=== PATIENT | female | born 1955 ===

== ENCOUNTER 2020-08-11 12:17 | Outpatient (REF) | payer MEDICARE, SELFPAY | END 2020-08-11 12:18 | disposition home or self-care (01) | LOC: HO.LAB 12:17 | PROVIDERS: Visit Provider Internal Medicine | DX: Z20.828 Contact with and (suspected) exposure to other viral communicable diseases (principal) | CPT/HCPCS: C9803; U0003 ==

== ENCOUNTER 2020-09-11 08:43 | Outpatient (REF) | payer MEDICARE, SELFPAY ==
--- NOTE | 2020-09-11 | PFT_ITS ---
FLOWS: FEV1 of 103% of predicted at 2.66 L. FVC 103% of predicted at 3.48 L. FEV1 to FVC ratio of 0.76. No bronchodilator response. LUNG VOLUMES: Total lung capacity 107% of predicted at 5.76 L. Residual volume 102% of predicted at 2.9 L. Slow vital capacity 111% of predicted at 3.48 L. Expiratory reserve volume 39% of predicted at 0.33 L. Diffusion capacity is moderately decreased. IMPRESSION: No obstructive or restrictive ventilatory defect. No bronchodilator response. Decreased expiratory reserve volume suggests extrathoracic restriction likely secondary to abdominal obesity. Isolated decrease in diffusion capacity suggests underlying pulmonary vascular or parenchymal disease. Clinical correlation is suggested. MD THA Hardy/MODL / [id number]
== END 2020-09-11 08:44 | disposition home or self-care (01) ==
LOC: HO.RESP 08:43
PROVIDERS: PCP Internal Medicine; Visit Provider Hospitalist
DX: J41.0 Simple chronic bronchitis (principal); Z23 Encounter for immunization
CPT/HCPCS: 90471; 90732; 94060; 94727; 94729; 99212

== ENCOUNTER 2020-10-30 08:58 | Outpatient (REF) | payer MEDICARE, SELFPAY ==
--- NOTE | ~2020-10-30 | XR_ITS ---
EXAMINATION: XR CERVICAL SPINE CLINICAL INFORMATION: Neck pain. COMPARISON: None TECHNIQUE: 3 views of the cervical spine were obtained. FINDINGS: There is mild anterolisthesis of C4 on C5. No prevertebral soft tissue swelling. Vertebral body heights are maintained. No evidence of acute fracture. Moderate disc degeneration at C5-C6, C6-C7. Multilevel facet degeneration. No suspicious findings in the lung apices. XR/XR cervical spine 3V IMPRESSION: No evidence of acute fracture. Cervical spondylosis. This includes moderate C5-C6, C6-C7 disc degeneration.
[2020-10-30 11:26] LABS: Hematocrit 38.6 % (37-47); Hemoglobin 12.7 g/dl (12.0-16.0); Mean Corpuscular HGB Conc 32.9 g/dl (31.0-35.0); Mean Corpuscular Hemoglobin 31.4 pg (27.0-33.0); Mean Corpuscular Volume 95.5 fL (80-98); Mean Platelet Volume 9.6 fL (9.4-12.3); Platelet Count 300 X10*3/uL (160-400); Red Blood Count 4.04 X10*6/uL (4.20-5.50); Red Cell Distribution Width 12.9 % (11.0-16.0); White Blood Count 6.9 X10*3/uL (4.8-10.8)
[2020-10-30 11:40] LABS: Glucose Urine UA NEG (NEG); Leukocyte Esterase Urine NEG (NEG); Nitrite Urine NEG (NEG); PH 5.5 (5.0-8.0); Urine Blood TRACE (NEG); Urine Ketones NEG (NEG); Urine Protein NEG (NEG-TRACE)
[2020-10-30 11:41] LABS: Appearance Urine CLEAR; Color Urine YELLOW
[2020-10-30 11:52] LABS: Alanine Aminotransferase 22 U/L (0-31); Albumin Level 4.6 g/dL (3.5-5.0); Alkaline Phosphatase 77 U/L (39-117); Anion Gap 14 (12-20); Aspartate Amino Transferase 19 U/L (5-31); Bilirubin Total 0.8 mg/dL (0.0-1.0); Blood Urea Nitrogen 15 mg/dL (9-16); Calcium 9.5 mg/dL (8.4-10.2); Carbon Dioxide 26 mmol/L (22-29); Chloride 107 mmol/L (96-108); Cholesterol 184 mg/dL; Estimated Glomerular Filt Rate > 60; Glucose Fasting 90 mg/dL (60-99); HDL Cholesterol 63 mg/dL; LDL Cholesterol Calculated 97 mg/dl; Potassium 4.5 mmol/L (3.3-5.1); Sodium 142 mmol/L (135-145); Triglycerides 124 mg/dL
[2020-10-30 12:16] LABS: Squamous Epithelial Cell Urine TRACE /LPF; WBC Urine 0 /HPF (0-4)
[2020-10-30 12:18] LABS: TSH reflex Free T4 1.73 uIU/mL (0.32-4.0); Vitamin D 25-OH Total 30.2 ng/mL (>30)
== END 2020-10-30 08:59 | disposition home or self-care (01) ==
LOC: HO.HMGCX 08:58
PROVIDERS: PCP Internal Medicine; Visit Provider Internal Medicine
DX: Z00.00 Encounter for general adult medical examination without abnormal findings (principal); R91.8 Other nonspecific abnormal finding of lung field; J43.2 Centrilobular emphysema
CPT/HCPCS: 36415; 72040; 80053; 80061; 81001; 82306; 84443; 85027

== ENCOUNTER 2021-03-29 08:20 | Outpatient (REF) | payer MEDICARE, SELFPAY ==
--- NOTE | ~2021-03-29 | MM_ITS ---
EXAMINATION: MM SCREENING DIGITAL BREAST TOMOSYNTHESIS, BILATERAL CLINICAL INFORMATION: Screening. Asymptomatic. The lifetime risk of breast cancer based on the Tyrer-Cuzick Model is 6%. COMPARISON: Mammography: 03/27/2020, 12/01/2018, 08/22/2017 TECHNIQUE: Digital breast tomosynthesis is performed in both the craniocaudal and mediolateral oblique views along with computer-aided detection (CAD). Synthesized 2D images are generated from the tomosynthesis. FINDINGS: There are scattered areas of fibroglandular density (ACR BI-RADS breast composition Category b). There are no significant masses, abnormal calcifications, or other abnormalities. There is a dermal lesion again seen overlying the upper outer left breast. The axilla are unremarkable. No significant changes. MM/MM tomosynthesis screening BI IMPRESSION: No mammographic evidence of malignancy. ASSESSMENT: BI-RADS 2: Benign RECOMMENDATION: Routine annual mammography screening. This patient's information was entered into a reminder system with a target due date for their next mammogram.
== END 2021-03-29 08:21 | disposition home or self-care (01) ==
LOC: HO.MAMMO 08:20
PROVIDERS: PCP Internal Medicine; Visit Provider Internal Medicine
DX: Z12.31 Encounter for screening mammogram for malignant neoplasm of breast (principal)
CPT/HCPCS: 77063; 77067

== ENCOUNTER → 2021-09-10 08:59 | Outpatient (BNVA) | payer MEDICARE, SELFPAY | PROVIDERS: PCP Internal Medicine; Visit Provider Hospitalist | DX: R91.8 Other nonspecific abnormal finding of lung field (principal); J43.2 Centrilobular emphysema; J40 Bronchitis, not specified as acute or chronic | CPT/HCPCS: Q3014 ==

== ENCOUNTER 2021-11-19 09:05 | Day surgery (SDC) | payer MEDICARE, SELFPAY ==
--- NOTE | 2021-11-17 14:17 | P.CONAN_ITS ---
Documented by User: Katherine Hawkins NP 11/17/21 14:19 HPI - Anesthesia Eval Consult details Narrative: 66yo F for Upper Endoscopy and Colonoscopy PMFSH Active Problems Active Problems: All Active Problems (Updated 09/12/21 @ 21:11 by Nilo Palacio MD) Bronchitis (Acute) Neck pain (Acute) Annual physical exam (Acute) Pulmonary nodules (Acute) COPD (chronic obstructive pulmonary disease) (Acute) Past Medical History Medical History Annual physical exam Arthritis COPD (chronic obstructive pulmonary disease) Elevated cholesterol History of palpitations Hx of irritable bowel syndrome Neck pain Pulmonary nodules Family History Family History Father No problems noted. Mother No problems noted. Maternal Aunt Colon cancer Maternal Uncle Colon cancer Sister No problems noted. Son No problems noted. Surgical History Surgical History H/O colonoscopy History of carpal tunnel release of both wrists Hx of esophagogastroduodenoscopy Hx of oophorectomy Hx of tonsillectomy Social History Social History Housing: House Patient Tobacco Use Status: Former Tobacco user Quit Date: 2010 Tobacco use type: Cigarette Years Smoked: 10 years e-Cigarette/Vaping Use: Never Used Use of substances other than those prescribed or required for medical reasons: No Are you DNR?: No Advance Directives: No Advance Directives Information Provided: Yes Recently lost weight without trying: No Meds Allergies Allergy/AdvReac Type Severity Reaction Status Date / Time No Known Allergies Allergy Mild N/A Verified 11/19/21 10:04 Home Medications Medication Instructions Recorded Confirmed Last Taken Type cholecalciferol (vitamin D3) 25 25 mcg PO DAILY 06/29/20 10/22/20 Unknown History mcg (1,000 unit) tablet (Vitamin D3) coenzyme Q10 100 mg capsule (Co 100 mg PO DAILY 06/29/20 10/22/20 Unknown History Q-10) multivitamin 1 tab PO DAILY 06/29/20 10/22/20 Unknown History tiotropium 2.5 mcg-olodaterol 2.5 2 puff INHALATION DAILY 06/29/20 10/22/20 Unknown History mcg/actuation mist for inhalation (Stiolto Respimat) flu vacc [id number](65yr up)-PF 240 ml IM 09/11/20 10/22/20 Unknown History mcg/0.7 mL intramuscular syringe fluticasone propionate 50 2 spray INTRANASAL DAILY 09/11/20 10/22/20 Unknown H istory mcg/actuation nasal spray,suspension omeprazole 20 mg capsule,delayed 20 mg PO DAILY 10/25/21 Unknown History release Exam Exam Date and Time: November 17, 2021 1417 Narrative Narrative: PFT 03/2021 IMPRESSION:? No obstructive or restrictive ventilatory defect.? No bronchodilator response. Decreased expiratory reserve volume suggests extrathoracic restriction likely secondary to abdominal obesity.? Isolated decrease in diffusion capacity suggests underlying pulmonary vascular or parenchymal disease.? Clinical correlation is suggested. Assessment and Plan Assessment Anesthesia Assessment: Chart Reviewed Documented by User: Rajni Rodriguez MD 11/19/21 10:23 [facility] Past Medical History Medical History Annual physical exam Arthritis COPD (chronic obstructive pulmonary disease) Elevated cholesterol History of palpitations Hx of irritable bowel syndrome Neck pain Pulmonary nodules Family History Family History Father No problems noted. Mother No problems noted. Maternal Aunt Colon cancer Maternal Uncle Colon cancer Sister No problems noted. Son No problems noted. Surgical History Surgical History H/O colonoscopy History of carpal tunnel release of both wrists Hx of esophagogastroduodenoscopy Hx of oophorectomy Hx of tonsillectomy History of Problems with Anesthesia: No Social History Social History Housing: House Patient Tobacco Use Status: Former Tobacco user Quit Date: 2010 Tobacco use type: Cigarette Years Smoked: 10 years e-Cigarette/Vaping Use: Never Used Use of substances other than those prescribed or required for medical reasons: No Are you DNR?: No Advance Directives: No Advance Directives Information Provided: Yes Recently lost weight without trying: No Meds Allergies Allergy/AdvReac Type Severity Reaction Status Date / Time No Known Allergies Allergy Mild N/A Verified 11/19/21 10:04 Home Medications Medication Instructions Recorded Confirmed Last Taken Type cholecalciferol (vitamin D3) 25 25 mcg PO DAILY 06/29/20 10/22/20 Unknown History mcg (1,000 unit) tablet (Vitamin D3) coenzyme Q10 100 mg capsule (Co 100 mg PO DAILY 06/29/20 10/22/20 Unknown History Q-10) multivitamin 1 tab PO DAILY 06/29/20 10/22/20 Unknown History tiotropium 2.5 mcg-olodaterol 2.5 2 puff INHALATION DAILY 06/29/20 10/22/20 Un known History mcg/actuation mist for inhalation (Stiolto Respimat) flu vacc [id number](65yr up)-PF 240 ml IM 09/11/20 10/22/20 Unknown History mcg/0.7 mL intramuscular syringe fluticasone propionate 50 2 spray INTRANASAL DAILY 09/11/20 10/22/20 Unknown History mcg/actuation nasal spray,suspension omeprazole 20 mg capsule,delayed 20 mg PO DAILY 10/25/21 Unknown History release Exam Airway Mallampati Class: II TM Dist: >3cm Neck ROM: Full Loose/Missing/Broken Teeth: No Heart: RRR Lungs: CTA Assessment and Plan Final Anesthetic Review History of Problems with Anesthesia: No NPO: Yes Final Preanesthetic Review: Meds/Allgs Chart Reviewed, Consent Obtained/Reviewed and Anes Risks/Benef Reviewed Patient Risk: Intermediate Procedure Risk: Intermediate Anesthetic Plan Anesthetic Plan: MAC: Disposition: Standard PACU
[2021-11-19 09:18] VITALS: BMI 30.7
[2021-11-19 10:02] VITALS: BP 135/62; PULSE 72; RESP 18; TEMP 36.2; O2SAT 99
[2021-11-19] MEDS: Lactated Ringers 1,000 ML 100 ML IVCONT (10:05)
--- NOTE | 2021-11-19 10:19 | MHC.SHP ---
Pre-Procedural Eval Section A Date of Service: 11/19/21 The patient is an INPATIENT: No Changes since office visit: No Cold of Flu in the past 2 weeks, No New Medical Problems, No Changes in Medication and No Patient answered all questions The History & Physical has been completed within 30 days and I have reviewed it.: Yes Section B Chief Complaint: reflux disease,screening Allergies: Allergies Allergy/AdvReac Type Severity Reaction Status Date / Time No Known Allergies Allergy Mild N/A Verified 11/19/21 10:04 Plan I have reviewed the history and physical and performed a pertinent physical examination on my patient. No changes have occurred unless specified.
[2021-11-19 11:15] VITALS: BP 107/43; PULSE 62; RESP 18; TEMP 37.2; O2SAT 99
--- NOTE | 2021-11-19 11:22 | P.BOP_ITS ---
Brief Operative Note Date of Service: 11/19/21 Pre-op diagnosis: gerd,screening Post-op diagnosis: same Procedure: egd,colon Surgeon: Parminder Fitch Anesthesia: MAC Was an Social Director used for this Procedure?: No Estimated blood loss (mL): 2 Pathology: other (see req) Condition: stable Disposition: PACU
[2021-11-19 11:29] VITALS: BP 117/53; PULSE 79; RESP 16; TEMP 36.5; O2SAT 97
--- NOTE | 2021-11-19 11:53 | OP_ITS ---
SURGEON: Parminder Fitch MD INDICATIONS: 1. Gastroesophageal reflux disease. 2. Colon cancer screening. PREOPERATIVE DIAGNOSIS: POSTOPERATIVE DIAGNOSIS: PROCEDURE PERFORMED: 1. Upper endoscopy with biopsy. 2. Colonoscopy to the terminal ileum. ESTIMATED BLOOD LOSS: COMPLICATIONS: ANESTHESIA: ASSISTANTS: SPECIMENS: MEDICATIONS: Monitored anesthesia care. PROCEDURE DESCRIPTION: The history and physical were performed. The risks and benefits of the procedure were explained to the patient. Informed consent was obtained. The patient was placed in the left lateral decubitus position. The Olympus video gastroscope was introduced into the esophagus, stomach, and duodenum. Examination was performed. The scope was removed and she was repositioned for colonoscopy. A digital rectal exam was performed and was found to be normal. The Olympus pediatric video colonoscope was introduced into the rectum and advanced to the cecum without difficulty. The cecum was identified by transillumination, palpation, and identification of the ileocecal valve. Examination was performed and the scope was removed. She tolerated both procedures well and was sent to recovery area in stable condition. FINDINGS: UPPER ENDOSCOPY: Esophagus: The esophagus showed esophagitis in the distal 2 cm with a single erosion measuring approximately 5 mm. Biopsies were obtained from the EG junction. There was no stricture. Stomach: The stomach showed no evidence of masses, ulcers, or polyps. Antral biopsies were obtained. Duodenum: Bulb and second portion were normal. Biopsies were obtained from the second portion. COLONOSCOPY: The terminal ileum was normal. Abdominal wall pressure was used to assist in advancement of the scope. The quality of prep was good. No polyps were identified. Retroflexed examination was normal. Colonic mucosa is normal. IMPRESSION: 1. Gastroesophageal reflux disease with esophagitis. 2. Normal colonoscopy. RECOMMENDATION: 1. Follow up the biopsy results. 2. Begin omeprazole 20 mg daily for 8-12 weeks. 3. Repeat colonoscopy is recommended in 10 years for average risk individuals. MD GIOVANNI Adams/LEATHA / [id number] MTDD
== END 2021-11-19 12:00 | disposition home or self-care (01) ==
PROVIDERS: PCP Internal Medicine; Visit Provider Internal Medicine Gastroenterology
PROC: (CPT 43239; principal; 2021-11-19 10:20)
DX: Z12.11 Encounter for screening for malignant neoplasm of colon (principal); Z86.010 Personal history of colon polyps; K58.2 Mixed irritable bowel syndrome; K21.9 Gastro-esophageal reflux disease without esophagitis; K20.80 Other esophagitis without bleeding; J44.9 Chronic obstructive pulmonary disease, unspecified; E78.00 Pure hypercholesterolemia, unspecified; Z79.51 Long term (current) use of inhaled steroids; Z79.899 Other long term (current) drug therapy; Z87.891 Personal history of nicotine dependence
CPT/HCPCS: 43239; G0105; 88305; 88341; 88342

== ENCOUNTER 2022-03-29 10:12 | Day surgery (SDC) | payer MEDICARE, SELFPAY ==
[2022-02-16 14:56] VITALS: BMI 31.8
[2022-03-29] VITALS (9 sets, daily range): BP systolic 78–135; BP diastolic 29–60; PULSE 23–67; RESP 13–18; TEMP 36.4–36.7; O2SAT 94–100
[2022-03-29] MEDS: Lactated Ringers 1,000 ML 50 ML IVCONT (10:34)
--- NOTE | 2022-03-29 11:04 | P.HPSUR_ITS ---
Pre-Procedural Eval Section A Date of Service: 03/29/22 Section B Chief Complaint: Hong's esophagus with low grade dysplasia Details of Present Illness: see H&P no changes Relevant Family History (Specify if Yes): No Relevant Social History: None Present Medications: see Short Stay Collaborative assessment Medical History: No relevant PMH Allergies: Allergies Allergy/AdvReac Type Severity Reaction Status Date / Time No Known Allergies Allergy Mild N/A Verified 03/29/22 10:48 Review of Systems Sugical H&P ROS: Negative: Constitution, Cardiovascular, Respiratory, Neurological, Psychiatric, Hem-Onc, Allergic/Immunologic, Gastrointestinal, Genitourinary, Musculoskeletal, Integumentary, Endocrine and Eyes/Ears/Nose/Throat Exam Surgical H&P Exam: Normal: HEENT, Normal: Heart, Normal: Lungs, Normal: Ext remities, Normal: Abdomen, Normal: Skin and Normal: Neurological Plan Diagnosis/Plan: Unchanged I have reviewed the history and physical and performed a pertinent physical examination on my patient. No changes have occurred unless specified.
--- NOTE | 2022-03-29 11:35 | P.BOP_ITS ---
Brief Operative Note Date of Service: 03/29/22 Pre-op diagnosis: barretts, LGD Post-op diagnosis: same Procedure: egd Surgeon: Parminder Fitch Anesthesia: MAC Was an Fourchette Sewer used for this Procedure?: No Estimated blood loss (mL): 2 Pathology: other Condition: stable Disposition: PACU
--- NOTE | 2022-03-29 12:46 | HO.ANESPROP2 ---
HPI - Anesthesia Eval Consult details Narrative: 66 F for EGD PMFSH Active Problems Active Problems: All Active Problems (Updated 02/18/22 @ 08:55 by Silvana Boggs RN) Bronchitis (Acute) COPD (chronic obstructive pulmonary disease) (Acute) Pulmonary nodules (Acute) Annual physical exam (Acute) Neck pain (Acute) Past Medical History Medical History Annual physical exam Arthritis COPD (chronic obstructive pulmonary disease) Elevated cholesterol History of fall History of palpitations Hx of irritable bowel syndrome Neck pain Pulmonary nodules Family History Family History Father No problems noted. Mother No problems noted. Maternal Aunt Colon cancer Maternal Uncle Colon cancer Sister No problems noted. Son No problems noted. Family history of problems with anesthesia: No Surgical History Surgical History H/O colonoscopy History of carpal tunnel release of both wrists Hx of esophagogastroduodenoscopy Hx of oophorectomy Hx of tonsillectomy History of Problems with Anesthesia: No Social History Social History Housing: House Patient Tobacco Use Status: Former Tobacco user Quit Date: 2010 Tobacco use type: Cigarette Years Smoked: 10 years e-Cigarette/Vaping Use: Never Used Are you DNR?: No Advance Directives: No Advance Directives Information Provided: Yes Nutrition Risks: No Nutritional Risk Meds Allergies Allergy/AdvReac Type Severity Reaction Status Date / Time No Known Allergies Allergy Mild N/A Verified 03/29/22 10:48 Active Medications: Current Medications Lactated Ringer's (Lr) 1,000 mls @ 50 mls/hr IVCONT .Q20H MATT Last Infusion: 03/29/22 12:30 Dose: Infused Home Medications Medication Instructions Recorded Confirmed Last Taken Type cholecalciferol (vitamin D3) 25 25 mcg PO DAILY 06/29/20 03/23/22 Unknown History mcg (1,000 unit) tablet (Vitamin D3) coenzyme Q10 100 mg capsule (Co 100 mg PO DAILY 06/29/20 03/23/22 Unknown History Q-10) multivitamin 1 tab PO DAILY 06/29/20 03/23/22 Unknown History tiotropium 2.5 mcg-olodaterol 2.5 2 puff inhalation DAILY 06/29/20 03/23/22 Unknown History mcg/actuation mist for inhalation (Stiolto Respimat) fluticasone propionate 50 2 spray intranasal DAILY 09/11/20 10/22/20 Unknown History mcg/actuation nasal spray,suspension omeprazole 20 mg capsule,delayed 20 mg PO DAILY 10/25/21 03/23/22 03/29/22 History release Exam Exam Date and Time: March 29, 2022 1246 Height,Weight and Vital Signs: Height 5 ft 5.5 in Weight 194 lb Last Vital Signs Temp 98.1 F 03/29/22 11:29 Pulse 56 03/29/22 12:18 Resp 15 03/29/22 12:18 BP 127/48 L 03/29/22 12:18 Pulse Ox 98 03/29/22 12:18 O2 Del Method 03/29/22 12:18 Airway Mallampati Class: I TM Dist: >3cm Neck ROM: Full Loose/Missing/Broken Teeth: Yes Assessment and Plan Assessment Anesthesia Assessment: Anesthesia Plan Discussed and Chart Reviewed Final Anesthetic Review Family History of Problems with Anesthesia: No History of Problems with Anesthesia: No NPO: Yes ASA Class: III Final Preanesthetic Review: No Changes in Pt Med Stat, Meds/Allgs Chart Reviewed, Consent Obtained/Reviewed and Anes Risks/Benef Reviewed Patient Risk: Intermediate Procedure Risk: Low Anesthetic Plan Anesthetic Plan: MAC: Disposition: Standard PACU
--- NOTE | 2022-03-29 23:00 | OP_ITS ---
SURGEON: Parminder Fitch MD INDICATIONS: Hong's esophagus with low-grade dysplasia. PREOPERATIVE DIAGNOSIS: POSTOPERATIVE DIAGNOSIS: PROCEDURE PERFORMED: Upper endoscopy with brushing and biopsy. ESTIMATED BLOOD LOSS: COMPLICATIONS: ANESTHESIA: ASSISTANTS: SPECIMENS: MEDICATIONS: Monitored anesthesia care. DESCRIPTION OF PROCEDURE: The history and physical performed. The risks and benefits of the procedure were explained to the patient. Informed consent was obtained. The patient placed in the left lateral decubitus position. The Olympus video gastroscope was introduced into the esophagus, stomach, and duodenum. Examination was performed. The scope was removed. She tolerated the procedure well and was transferred to recovery area in stable condition. FINDINGS: 1. Esophagus: The esophagus showed a 1 cm area consistent with Hong esophagus. The EG junction was at the 40 cm eulogio and there were no raised lesions or ulcerated areas. There was no esophagitis. Brushings were obtained for WATS testing. Biopsies were also obtained for histopathology. 2. Stomach: The stomach was normal. 3. Duodenum: The bulb and second portion were normal. IMPRESSION: Hong's esophagus with low-grade dysplasia. RECOMMENDATIONS: Follow up the biopsy and brushing results. MD GIOVANNI Adams/BLAIREL / [id number]
== END 2022-03-29 13:39 | disposition home or self-care (01) ==
PROVIDERS: PCP Internal Medicine; Visit Provider Internal Medicine Gastroenterology
PROC: 0DJ08ZZ Inspection of Upper Intestinal Tract, Via Natural or Artificial Opening Endoscopic (ICD-10-PCS; CPT 43235; principal; 2022-03-29 11:00)
DX: K22.70 Barrett's esophagus without dysplasia (principal); J44.9 Chronic obstructive pulmonary disease, unspecified; E78.00 Pure hypercholesterolemia, unspecified; Z79.51 Long term (current) use of inhaled steroids; Z91.81 History of falling; Z87.891 Personal history of nicotine dependence
CPT/HCPCS: 43239; 88305

== ENCOUNTER → 2022-06-01 08:56 | Outpatient (BNVA) | payer MEDICARE, SELFPAY | PROVIDERS: PCP Internal Medicine; Visit Provider Hospitalist | DX: R91.8 Other nonspecific abnormal finding of lung field (principal); J43.2 Centrilobular emphysema; J40 Bronchitis, not specified as acute or chronic | CPT/HCPCS: 99212 ==

== ENCOUNTER 2022-11-14 08:46 | Outpatient (REF) | payer MEDICARE, SELFPAY ==
--- NOTE | 2022-11-14 11:04 | PFT_ITS ---
FLOWS: 1. FEV1 97% of predicted at 2.45 L. 2. FVC 98% of predicted at 3.23 L. 3. FEV1 to FVC ratio 0.76. 4. No bronchodilator response except small to medium airways. LUNG VOLUMES: 1. Total lung capacity 103% of predicted at 5.56 L. 2. Residual volume 107% of predicted at 2.42 L. 3. Slow vital capacity 101% of predicted at 3.13 L. 4. Expiratory reserve volume 78% of predicted at 0.64 L. 5. Diffusion capacity is mildly decreased. IMPRESSION: No obstructive or restrictive ventilatory defect. No bronchodilator response except some small to medium airways. Decreased diffusion capacity suggests emphysema. Jese Carrizales MD AP/MODL / [id number]
== END 2022-11-14 08:47 | disposition home or self-care (01) ==
LOC: HO.RESP 08:46
PROVIDERS: PCP Nurse Practitioner Family; Visit Provider Hospitalist
DX: J43.2 Centrilobular emphysema (principal)
CPT/HCPCS: 94060; 94727; 94729

== ENCOUNTER → 2022-12-30 09:09 | Outpatient (BNVA) | payer MEDICARE, SELFPAY | PROVIDERS: PCP Nurse Practitioner Family; Visit Provider Hospitalist | DX: Z23 Encounter for immunization (principal); R91.8 Other nonspecific abnormal finding of lung field; J43.2 Centrilobular emphysema; J40 Bronchitis, not specified as acute or chronic | CPT/HCPCS: 90471; 90677; 99212 ==

== ENCOUNTER 2024-02-19 08:45 | Outpatient (AMB) | payer MEDICARE, SELFPAY ==
[2024-02-19 09:01] VITALS: BP 128/72; PULSE 60; O2SAT 97; BMI 27.0
--- NOTE | 2024-02-19 09:01 | A.OFFVIS_ITS ---
Vital Signs 02/19/24 09:01 Height 5 ft 6.5 in Weight 170 lb BMI 27.0 BP 128/72 Blood Pressure Location Lt brachial Position Sitting Pulse 60 Pulse Source Pulse Oximeter Pulse Oximetry (%) 97 Oxygen Delivery Method Room Air Intake Visit Reasons: Pulmonary Nodules Allergies No Known Allergies Allergy (Mild, Verified 02/19/24 09:04) N/A HPI Comments Details: The patient is a 68-year-old woman known COPD in addition to pulmonary nodules. Overall she is doing very well. She has been complaining of a persistent cough. It is usually productive of white sputum. She denies any significant postnasal drip or reflux. She does not always use her inhalers. She is now part of the lung cancer screening program and had her CT scan of the chest back in January 2018. Her 10 mm nodule appeared to be stable. She is scheduled to have a follow-up CAT scan in January of 2020. In the meantime the patient is without any other complaints. On examination she does have significant postnasal drip. 09/11/2020 the patient is here for pulmonary follow-up visit. Overall the patient has been doing well. She has been exercising more. She has been swimming more. She still has some dyspnea on exertion specially when she does not use her inhaler. We did look at her pulmonary function studies demonstrating no evidence of any obstructive nor restrictive ventilatory defects. She does have a moderate diffusion impairment likely from history of emphysema. She is followed closely by the lung cancer screening program and her last CT scan dem onstrating stable pulmonary nodules. 09/10/2021 The patient has a tele health visit. Back in November 2020 the patient did have COVID. She stayed home although she did get moderately sick. The patient was sick for about 5 weeks. She has not recovered although for the last 3 weeks she has been battling a cold. She has been COVID tested again has been negative. She continues to take hwuu-upy-juemuev medications. Her inhalers have been partially helpful. She does complaint of productive cough mcpi-ve-lzcyskwz severity. Worse at nighttime. In addition to that we talked about her CT scan of the chest that she had back in March 2021 demonstrating stable pulmonary nodules and stable in his semen. She will continue with the lung cancer screening program with repeat CT scan in March 2022. 06/01/2022 the patient is here for a pulmonary follow-up visit. Overall she is doing well. She is exercising regularly. She likes to swim. She has lost about 20 lb or more. The patient did undergo a CT scan of the chest at [facility]. We did review the report demonstrating stable pulmonary nodules. The patient is reassured. She will have another CT scan in the summer 2022. In addition to that she continues on the Stiolto inhaler. It really helps her specially when she is exercising. However it is extremely expensive for her. The patient also has a cough. I do believe she will also have a very good response to Trelegy inhaler. Therefore I will switch over to Trelegy inhaler to contract for a month. It has had any point she feels that she does not need the inhaled steroid if he does not making significant improvement in her cough breathing then we can switch over to Anoro. The patient will return in 6 months an undergo pulmonary function studies. 12/31/2022 the patient is here for pulmonary follow-up visit. The patient overall is doing well from a respiratory status. She start using the Trelegy because was too expensive. She did get a rescue inhaler from her primary care doctor. She has been having some dyspnea on exertion. She underwent a stress test Zachary protocol them as demonstrated inferior lateral ST depressions. She was referred to Cardiology. Right now she is scheduled for a diagnostic catheterization with question of PCI. We did look at a PFTs. The patient is doing a lot better with evidence of small airways disease. The patient has a decreased diffusing capacity about likely from her underlying COPD. The patient will get a pneumonia vaccine today. Otherwise doing well. Based on our examination I do not believe that she benefits from a long-acting inhaler. If however she is using her rescue inhaler all too often more than twice a week she can always call the office and we can send her prescription mi a maintenance inhaler. The issue was that there expensive for her. Will try to find a lower cost inhaler if needed. 02/19/2024 the patient is here for a pulmonary follow-up visit. She has been complaining of worsening dyspnea on exertion. Fgip-hd-jhmdoqiv severity. Mainly when exercising. She typically goes swimming she had been noticing increasing dyspnea. We did talk about her inhalers. The patient does have a rescue inhaler but she does not like to use it because she does not want to get ?dependent on it?. In addition to that we talked about and cardiac evaluation. She did have a stress test that was abnormal. Therefore she underwent a cardiac catheterization at [facility]. We did look at the results. She has normal coronaries. Although her left ventricular end-diastolic pressure was elevated at 17 mmHg. This is high and normal. The recommendation was for her to get an echo to assess for diastolic dysfunction. She does not have any dietary indiscretions. We did talk about low-sodium diet she needs to minimize her volume status and explained to her that she would have increased work of breathing because of increased heart rate. She does have an elevated heart rate as it is. Therefore, the patient at this point can try using pre exercise albuterol 15 minutes before as a trial to see if this gives her some relief. In addition to that she is going to talk to her client specialist or primary care doctor about getting an echocardiogram which be very reasonable. She should continue to exercise and monitor heart. To note her last CT chest at [facility] personally reviewed by me, was stable with mederate emphysena and stable findings. FOR[facility]LY [facility], [facility] Medical History (Updated 02/19/24 @ 20:57 by Nilo Palacio MD) Dyspnea History of fall Neck pain Annual physical exam Pulmonary nodules History of palpitations Hx of irritable bowel syndrome Arthritis COPD (chronic obstructive pulmonary disease) Elevated cholesterol Surgical History (Updated 04/12/22 @ 10:16 by Bella Shelby MD) Hx of esophagogastroduodenoscopy Hx of tonsillectomy History of carpal tunnel release of both wrists Hx of oophorectomy H/O colonoscopy Family History Father No problems noted. Mother No problems noted. Maternal Aunt Colon cancer Maternal Uncle Colon cancer Sister No problems noted. Son No problems noted. Social History Housing: House Patient Tobacco Use Status: Former Tobacco user Tobacco use type: Cigarette Years Smoked: 10 years e-Cigarette/Vaping Use: Never Used Current occupational status: retired Cognitive needs: No Hearing needs: No Vision needs: Yes Review of Systems Const Denies night sweats ENT Denies change in voice, Denies lip swelling, Denies mouth pain, Reports nasal congestion, Reports nasal discharge and Denies tongue swelling Card Denies chest pain and Reports dyspnea on exertion Resp Reports cough and Reports dyspnea on exertion GI Denies abdominal pain Musc Denies no additional complaints Neuro Denies Neuro-related abnormal movements Psych Denies no additional complaints Tito/Lymph Denies easy bleeding and Denies lymphadenopathy Aller/Immun Denies lip swelling and Denies tongue swelling Physical Exam Vital Signs: Last Vital Signs Pulse 60 02/19/24 09:01 BP 128/72 02/19/24 09:01 Pulse Ox 97 02/19/24 09:01 Oxygen Delivery Method Room Air 02/19/24 09:01 BMI result Body Mass Index 27.0 Const General: alert HEENT General nose exam: Abnormal external nose present and Nasal discharge present Eyes Pupils: Equal, round and reactive pupils present Neck Neck: Yes normal visual inspection, Yes full ROM and Yes no lymphadenopathy Chest Chest palpation & inspection: normal inspection of the chest Resp Auscultation: diminished lung sounds Cardio Rate: regular rate Rhythm: regular rhythm Heart sounds: S1 normal heart sound present and S2 normal heart sound present GI Palpation (GI): Soft to palpation and nontender Auscultation: normal bowel sounds General: Yes no CVA tenderness Back/Spine/Pelvis Back: no CVA tenderness Skin General skin exam: rashes and/or lesions noted Neuro Cranial nerves: Yes Equal, round and reactive pupils present Assessment & Plan Assessment & Plan (1) Pulmonary nodules: Code(s): R91.8 - Other nonspecific abnormal finding of lung field Category: Medical (2) COPD (chronic obstructive pulmonary disease): Code(s): J44.9 - Chronic obstructive pulmonary disease, unspecified Category: Medical Qualifiers: COPD type: emphysema Emphysema type: centrilobular Qualified Code(s): J43.2 - Centrilobular emphysema (3) Dyspnea: Code(s): R06.00 - Dyspnea, unspecified Category: Medical Qualifiers: Dyspnea type: dyspnea on exertion Qualified Code(s): R06.09 - Other forms of dyspnea Plan DANNY as needed and 15 minutes before exercise consider ECHO to address ?diastolic dysfunction with elevated LVEDP on cardiac cath Low sodium diet continue exercise regimen LDCT summer 2023 F/U 6-8 months Coding Level of Care Code Est Pt Level 4 (35022) Diagnoses Pulmonary nodules R91.8 Centrilobular emphysema J43.2 COPD type: emphysema Emphysema type: centrilobular Dyspnea on exertion R06.09 Dyspnea type: dyspnea on exertion Time Spent (min) 18
== END 2024-02-19 09:25 | disposition home or self-care (01) ==
PROVIDERS: PCP Family Medicine; Visit Provider Hospitalist
DX: R91.8 Other nonspecific abnormal finding of lung field (principal); J43.2 Centrilobular emphysema; R06.09 Other forms of dyspnea
CPT/HCPCS: 99214

== ENCOUNTER → 2024-02-19 08:45 | Outpatient (BNVA) | payer MEDICARE, SELFPAY | PROVIDERS: PCP Nurse Practitioner Family; Visit Provider Hospitalist | DX: R91.8 Other nonspecific abnormal finding of lung field (principal); J43.2 Centrilobular emphysema; R06.09 Other forms of dyspnea | CPT/HCPCS: 99212 ==

== ENCOUNTER 2024-05-21 08:04 | Day surgery (SDC) | payer MEDICARE, SELFPAY ==
[2024-05-17 14:48] VITALS: BMI 29.0
--- NOTE | 2024-05-20 16:01 | P.CONAN_ITS ---
Documented by User: Katherine Hawkins NP 05/20/24 16:01 HPI - Anesthesia Eval Consult details Narrative: 69yo F for Upper Endoscopy WITH العلي PMFSH Active Problems Active Problems: All Active Problems Dyspnea (Acute) H/O colonoscopy (Acute) Neuropathy (Acute) GERD (gastroesophageal reflux disease) (Acute) Osteoporosis (Acute) Bronchitis (Acute) COPD (chronic obstructive pulmonary disease) (Acute) Pulmonary nodules (Acute) Annual physical exam (Acute) Neck pain (Acute) Past Medical History Medical History Dyspnea History of fall Neck pain Annual physical exam Pulmonary nodules History of palpitations Hx of irritable bowel syndrome Arthritis COPD (chronic obstructive pulmonary disease) Elevated cholesterol Family History Family History Father No problems noted. Mother No problems noted. Maternal Aunt Colon cancer Maternal Uncle Colon cancer Sister No problems noted. Son No problems noted. Family history of problems with anesthesia: No Surgical History Surgical History Hx of esophagogastroduodenoscopy Hx of tonsillectomy History of carpal tunnel release of both wrists Hx of oophorectomy H/O colonoscopy History of Problems with Anesthesia: No Social History Social History Housing: House Are you a primary reproductive healthcare assistant to a significant other at home: No Do you presently have visiting nurse or other home services: No Patient Tobacco Use Status: Former Tobacco user Tobacco use type: Cigarette Years Smoked: 10 years e-Cigarette/Vaping Use: Never Used Second Hand Smoke Exposure: No Current occupational status: retired Cognitive needs: No Hearing needs: No Vision needs: Yes Meds Allergies Allergy/AdvReac Type Severity Reaction Status Date / Time No Known Allergies Allergy Mild N/A Verified 05/21/24 08:15 Home Medications ?Medication ?Instructions ?Recorded ?Confirmed ?Last Taken ?Type cholecalciferol (vitamin D3) 25 25 mcg PO DAILY 06/29/20 05/21/24 Unknown History mcg (1,000 unit) tablet (Vitamin D3) coenzyme Q10 100 mg capsule (Co 100 mg PO DAILY 06/29/20 05/21/24 Unknown History Q-10) multivitamin 1 tab PO DAILY 06/29/20 05/21/24 Unknown History omeprazole 20 mg capsule,delayed 20 mg PO DAILY 10/25/21 05/21/24 05/21/24 History release fluticasone propionate 50 2 spray intranasal DAILY PRN 06/01/22 05/21/24 Unknown History mcg/actuation nasal Congestion spray,suspension aspirin 81 mg 05/21/24 05/14/24 History Exam Height,Weight and Vital Signs: Height 5 ft 5.5 in Weight 80.377 kg Assessment and Plan Assessment Anesthesia Assessment: Chart Reviewed Final Anesthetic Review Family History of Problems with Anesthesia: No History of Problems with Anesthesia: No Documented by User: Rajni Rodriguez MD 05/21/24 09:55 HPI - Anesthesia Eval Anesthesia Pre-Procedure Meds If yes to any meds - educate patient: Pt education - possibility of cancelled proc at provider's discretion PMFSH Past Medical History Medical History Dyspnea History of fall Neck pain Annual physical exam Pulmonary nodules History of palpitations Hx of irritable bowel syndrome Arthritis COPD (chronic obstructive pulmonary disease) Elevated cholesterol Family History Family History Father No problems noted. Mother No problems noted. Maternal Aunt Colon cancer Maternal Uncle Colon cancer Sister No problems noted. Son No problems noted. Surgical History Surgical History Hx of esophagogastroduodenoscopy Hx of tonsillectomy History of carpal tunnel release of both wrists Hx of oophorectomy H/O colonoscopy Social History Social History Housing: House Are you a primary reproductive healthcare assistant to a significant other at home: No Do you presently have visiting nurse or other home services: No Patient Tobacco Use Status: Former Tobacco user Tobacco use type: Cigarette Years Smoked: 10 years e-Cigarette/Vaping Use: Never Used Second Hand Smoke Exposure: No Current occupational status: retired Cognitive needs: No Hearing needs: No Vision needs: Yes Meds Allergies Allergy/AdvReac Type Severity Reaction Status Date / Time No Known Allergies Allergy Mild N/A Verified 05/21/24 08:15 Home Medications ?Medication ?Instructions ?Recorded ?Confirmed ?Last Taken ?Type cholecalciferol (vitamin D3) 25 25 mcg PO DAILY 06/29/20 05/21/24 Unknown History mcg (1,000 unit) tablet (Vitamin D3) coenzyme Q10 100 mg capsule (Co 100 mg PO DAILY 06/29/20 05/21/24 Unknown History Q-10) multivitamin 1 tab PO DAILY 06/29/20 05/21/24 Unknown History omeprazole 20 mg capsule,delayed 20 mg PO DAILY 10/25/21 05/21/24 05/21/24 History release fluticasone propionate 50 2 spray intranasal DAILY PRN 06/01/22 05/21/24 Unknown History mcg/actuation nasal Congestion spray,suspension aspirin 81 mg 05/21/24 05/14/24 History Exam Airway Mallampati Class: II TM Dist: >3cm Neck ROM: Full Loose/Missing/Broken Teeth: No Heart: RRR Lungs: CTA Assessment and Plan Assessment Anesthesia Assessment: Anesthesia Plan Discussed Final Anesthetic Review NPO: Yes ASA Class: III Final Preanesthetic Review: Meds/Allgs Chart Reviewed, Consent Obtained/Reviewed and Anes Risks/Benef Reviewed Patient Risk: Intermediate Procedure Risk: Intermediate Anesthetic Plan Anesthetic Plan: MAC: Disposition: Standard PACU
[2024-05-21 08:12] VITALS: BMI 29.5
[2024-05-21] MEDS: Lactated Ringers 1,000 ML 100 ML IVCONT (08:17)
[2024-05-21 08:30] VITALS: BP 122/45; PULSE 63; RESP 18; TEMP 36.7; O2SAT 98
--- NOTE | 2024-05-21 09:44 | MHC.SHP ---
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 Details of Present Illness: see H&P no changes Relevant Family History (Specify if Yes): No Relevant Social History: None Allergies: Allergies Allergy/AdvReac Type Severity Reaction Status Date / Time No Known Allergies Allergy Mild N/A Verified 05/21/24 08:15 Review of Systems Sugical H&P ROS: Negative: Constitution, Cardiovascular, Respiratory, Neurological, Psychiatric, Hem-Onc, Allergic/Immunologic, Gastrointestinal, Genitourinary, Musculoskeletal, Integumentary, Endocrine and Eyes/Ears/Nose/Throat Exam Surgical H&P Exam: Normal: HEENT, Normal: Heart, Normal: Lungs, Normal: Extremities, Normal: Abdomen, Normal: Skin and Normal: Neurological Plan Diagnosis/Plan: Unchanged I have reviewed the history and physical and performed a pertinent physical examination on my patient. No changes have occurred unless specified. Time Spent With Patient Time: Total time managing care of this patient today ____ minutes.
[2024-05-21 10:25] VITALS: BP 99/45; PULSE 61; RESP 16; TEMP 36.7; O2SAT 98
--- NOTE | 2024-05-21 10:29 | P.BOP_ITS ---
Brief Operative Note Date of Service: 05/21/24 Pre-op diagnosis: barretts Procedure: egd Surgeon: Parminder iFtch MD Anesthesia: MAC Was an Manufacturing Storeperson used for this Procedure?: No Estimated blood loss (mL): 5 Pathology: other Condition: stable Disposition: PACU
--- NOTE | 2024-05-21 10:40 | OP_ITS ---
DATE OF SERVICE: 05/21/2024 SURGEON: Parminder Fitch MD INDICATIONS: Hong's esophagus. PREOPERATIVE DIAGNOSIS: POSTOPERATIVE DIAGNOSIS: PROCEDURE PERFORMED: Upper endoscopy with biopsy. ESTIMATED BLOOD LOSS: COMPLICATIONS: ANESTHESIA: Monitored anesthesia care. ASSISTANTS: SPECIMENS: DESCRIPTION OF PROCEDURE: A history and physical was performed. The risks and benefits of the procedure were explained to the patient. Informed consent was obtained. The patient was placed in the left lateral decubitus position. The Olympus video gastroscope was introduced into the esophagus, stomach, and duodenum. Examination was performed. The scope was removed. She tolerated the procedure well and was returned to the recovery area in stable condition. FINDINGS: Esophagus: There was a 1 cm area of Hong esophagus with no raised lesions or ulcerated areas. Biopsies were obtained from this area after brushings were obtained. Stomach: The stomach was normal. Duodenum: The bulb and 2nd portion were normal. IMPRESSION: Hong esophagus. RECOMMENDATION: Follow up the biopsy results. MD GIOVANNI Adams/MODL / [id number]
[2024-05-21 10:43] VITALS: BP 118/52; PULSE 58; RESP 18; TEMP 36.1; O2SAT 96
== END 2024-05-21 11:24 | disposition home or self-care (01) ==
PROVIDERS: PCP Family Medicine; Visit Provider Internal Medicine Gastroenterology
PROC: 0DJ08ZZ Inspection of Upper Intestinal Tract, Via Natural or Artificial Opening Endoscopic (ICD-10-PCS; CPT 43235; principal; 2024-05-21 09:30)
DX: K22.70 Barrett's esophagus without dysplasia (principal); E78.5 Hyperlipidemia, unspecified; J44.9 Chronic obstructive pulmonary disease, unspecified; Z79.02 Long term (current) use of antithrombotics/antiplatelets; Z79.899 Other long term (current) drug therapy
CPT/HCPCS: 43239; 88305; 88313; J2704

== ENCOUNTER 2025-01-21 06:23 | Day surgery (SDC) | payer MEDICARE, SELFPAY ==
[2024-11-08 13:15] VITALS: BMI 29.0
--- OUTSIDE RECORDS SUMMARY | 2025-01-14 12:49 | XMS_ITS ---
Author Organization [facility] Address [address] [place] [id number] Care Team Providers Care Electronics Installer Name Role Phone Sandy ANSARI, Li Primary Care Provider Unavailab jessica Fitch Jr, Parminder Ramirez [phone] REASON FOR VISIT pathology Encounters Encounter Location Date Provider Diagnosis [facility] [address] [place] [id number] 06/05/2024 Parminder Fitch Jr Plan Of Treatment Next Appt Details Provider Name:Parminder wilkes Jr, 01/21/2025 07:30:00 AM, [address] [place] [address] , [place], [place], [id number], Progress Notes * LONA CONNOLLY MDOB:[birth year] (69 yo F)Acc No.[id number]:06/05/2024 Patient:?LONA CONNOLLY :1955???Age:69 Y???Sex:Female Address:[address] [place] [address] * true * Date:? Generated for Printi viji/Elo/eTransmitting on:?01/14/2025 12:49 PM EDT
--- OUTSIDE RECORDS SUMMARY | 2025-01-14 12:49 | XMS_ITS | Continuity of Care Document ---
Author Organization [facility] Address [address] [place] [id number]- Care Team Providers Care Airplane Flight Attendant Supervisor Name Role Phone Sandy ANSARI, Li Alejandro Primary Care Physician [phone] [place] [facility] [place] 12/12[place]24 - 01/11/25 [facility] [address] [place] [id number] Encounter Type: Triage Allergies, Adverse Reactions, Alerts No Known Allergies Immunizations Given and Recorded Vaccine Date Status Refusal Reason pneumococcal 20-valent conjugate vaccine 12/30/22 Recorded influenza virus vaccine, inactivated 05/28/22 Neftali rded [id number] 12y+ bivalent booster vax 05/28/22 Recorded SARS-CoV-2 mRNA ([id number]) vax 12/17/21 Recorded SARS-CoV-2 (COVID-19) mRNA BNT-162b2 vac 06/26/21 Recorded SARS-CoV-2 (COVID-19) mRNA BNT-162b2 vac 12/12/20 Recorded SARS-CoV-2 (COVID-19) mRNA BNT-162b2 vac 11/07/20 Recorded pneumococcal 23-valent vaccine 09/11/20 Recorded pneumococcal 13-valent vaccine 07/02/19 Recorded Medications Albuterol (Eqv-Ventolin HFA) 90 mcg/inh inhalation aerosol 2 puffs, Inhalation, Every 6 hours, X30 DAYS., # 18 each, 1 Refills, Maintenance, 10/15/24 4:48:00 PM EST, [id number], 30, 2 PUFFS INHALATION EVERY 6 HOURS,X30 DAYS, 168, cm, 08/09/24 15:17:00 EST, Height, 75.6, kg, 01/27/23 7:07:00 EDT, Dry Weight Start Date: 10/15/24 Status: Ordered Quantity: 18.0 Unit: each Repeat number: 1 atorvastatin 40 mg oral tablet 1 tablet = 40 mg, By Mouth, Daily, # 90 tablet, 3 Refills, Maintenance, 05/17/24 8:14:00 AM EDT, Tablet, [facility]/pharmacy #[id number], Partial fill upon patient request if the prescription is for a schedule II opioid drug., 168, cm, 05/17/24 7:41:00 EDT, Height, 75.6, kg, 01/27/23 7:07:00 EDT, Dry Weight Start Date: 05/17/24 Status: Ordered Quantity: 90.0 Unit: tablet Repeat number: 4 CoQ10 100 mg oral capsule 1 capsule = 100 mg, By Mouth, Daily, 0 Refills, Maintenance, 08/11/22 2:18:00 PM EST, Partial fill upon patient request if the prescription is for a schedule II opioid drug. Start Date: 08/11/22 Status: Ordered Repeat number: 1 Daily Multiple Vitamins 1 tablet, By Mouth, Daily, 0 Refills, Maintenance, 05/10/13 8:50:40 AM EDT Start Date: 05/10/13 Status: Ordered Repeat number: 1 fluticasone 50 mcg/inh nasal spray See Instructions, 1 spray in each nostril bid, # 1 each, 1 Refills, Maintenance, 05/12/23 8:25:00 AM EDT, [facility]/pharmacy #[id number], Partial fill upon patient request if the prescription is for a schedule II opioid drug., 1 spray in each nostril bid, 168, cm, 05/12/23 8:12:00 EDT, Height, 75.6, kg, 01/27/237:07:00 EDT, Dry Weight Start Date: 05/12/23 Status: Ordered Quantity: 1.0 Unit: each Repeat number: 2 gabapentin 300 mg oral capsule 2 capsule = 600 mg, By Mouth, Daily at bedtime, 0 Refills, Maintenance, 05/10/15 11:05:39 AM EDT, Capsule Start Date: 05/10/15 Status: Ordered Repeat number: 1 omeprazole 20 mg oral enteric coated capsule 1 capsule = 20 mg, By Mouth, Daily, # 30 capsule, 0 Refills, Maintenance, 08/11/22 2:18:00 PM EST, [facility], Partial fill upon patient request if the prescription is for a schedule II opioid drug. Start Date: 08/11/22 Status: Ordered Quantity: 30.0 Unit: capsule Repeat number: 1 Vitamin D Vitamin D, Refills 0, Maintenance, 12/23/22 7:53:00 AM EDT, Supply Start Date: 12/23/22 Status: Ordered Repeat number: 1 Problem List Condition Confirmation Course Effective Dates Status H ealth Status Informant Hong's esophagus Confirmed Active Chronic obstructive pulmonary disease (COPD) Confirmed Active Hyperlipidemia Confirmed 09/29/17 Active Pulmonary nodules Confirmed Active Osteoporosis Confirmed 09/29/17 Active Social History Social History Type Response Smoking Status Former smoker, quit more than 30 days ago; Type: Cigarettes; Tobacco user in household: No; Other: Quit 2010; Started at age: 21; Stopped at age: 55; entered on: 08/11/22 Sex Sex Representation Female (finding) Patient Care team information Care Team Personnel Name: Li Delgado MD Position: [facility] Physician - Primary Care Member Role: PCP Address: [address] [place] [address] [place] [address]- Telecom: Name: Mp Magana RN Position: [facility] RN Member Role: Primary Care Nurse Care Team Related Persons Name: MERLY MATHIS Name: KAPIL MATHIS Name: KENNEDY CONNOLLY Insurance Providers Guarantor name: LONA CONNOLLY Health Plan Information #: 1 Payer: [employer] ADV HMO Member Number: NA Policy Number: NA Group Number: NA
--- OUTSIDE RECORDS SUMMARY | 2025-01-14 12:49 | XMS_ITS ---
Author Organization [facility] Address [address] [place] [address] Care Team Providers Care Manager Car Name Role Phone Sandy ANSARI, Li Primary Care Provider Unavailab Parminder Preston Jr [phone] REASON FOR VISIT dysplasia Encounters Encounter Location Date Provider Diagnosis [facility] [place] [address] [place] [id number] 11/12/2024 Parminder Fitch Jr Plan Of Treatment Next Appt Details Provider Name:Parminder wilkes Jr, 01/21/2025 07:30:00 AM, [address] [place] [address], [phone], Progress Notes * LONA CONNOLLY MDOB:[birth year] (69 yo F)Acc No.[id number]:11/12/2024 EGD/MAC Patient:?LONA CONNOLLY Provider:?Parminder Fitch MD :1955???Age:69 Y???Sex:Female D ate:11/12/2024 Address:[address] [place] [address] Pcp:Li Delgado MD Subjective: * Chief Complaints: * ???1. Dysplasia. * Medical History:? Objective: * Vitals:? Assessment: Plan: * Treatment: * * The named appointment provid er may or may not be the originator of this progress note, and it is not deemed complete until electronically signed by the appointment provider. Sign off status: Pending * Provider:?Parminder Fitch MD Date:?0 11/12/2024 Generated for Taty hallman/Elo/Tacos on:?01/14/2025 12:49 PM EDT
--- OUTSIDE RECORDS SUMMARY | 2025-01-14 12:49 | XMS_ITS | Continuity of Care Document ---
Author Organization [facility] Address [address] [place] [address]- Care Team Providers Care Front Clerk Name Role Phone Sandy ANSARI, Li Alejandro Primary Care Physician [facility] [id number] Date(s): 09/10/24 - 01/08/[address] [address] Attending Physician: Mp Bhatia MD Referring Physician: Li Delgado MD Encounter Type: Pre-OutPatient One Time Allergies, Adverse Reactions, Alerts No Known Allergies Immunizations Given and Recorded Vaccine Date Status Refusal Reason pneumococcal 20-valent conjugate vaccine 12/30/22 Recorded influenza virus vaccine, inactivated 05/28/22 Neftali rded [id number] 12y+ bivalent booster vax 05/28/22 Recorded SARS-CoV-2 mRNA ([id number]) vax 12/17/21 Recorded SARS-CoV-2 (COVID-19) mRNA BNT-162b2 vac 06/26/21 Recorded SARS-CoV-2 (COVID-19) mRNA BNT-162b2 vac 12/12/20 Recorded SARS-CoV-2 (COVID-19) mRNA BNT-162b2 vac 11/07/20 Recorded pneumococcal 23-valent vaccine 09/11/20 Recorded pneumococcal 13-valent vaccine 07/02/19 Recorded Medications Albuterol (Eqv-Ventolin HFA) 90 mcg/inh inhalation aerosol 2 puffs, Inhalation, Every 6 hours, X30 DAYS., # 18 each, 1 Refills, Maintenance, 10/15/24 4:48:00 PM EST, [id number], 30, 2 PUFFS INHALATION EVERY 6 HOURS,X30 DAYS, 168, cm, 08/09/24 15:17:00 EST, Height, 75.6, kg, 01/27/23 7:07:00 EDT, Dry Weight Start Date: 10/15/24 Status: Ordered Quantity: 18.0 Unit: each Repeat number: 1 atorvastatin 40 mg oral tablet 1 tablet = 40 mg, By Mouth, Daily, # 90 tablet, 3 Refills, Maintenance, 05/17/24 8:14:00 AM EDT, Tablet, [facility]/pharmacy #[id number], Partial fill upon patient request [...] 1 Refills, Maintenance, 05/12/23 8:25:00 AM EDT, [facility]/pharmacy #[id number], Partial fill upon patient request if the prescription is for a schedule II opioid drug., 1 spray in each nostril bid, 168, cm, 05/12/23 8:12:00 EDT, Height, 75.6, kg, 237:07:00 EDT, Dry Weight Start Date: 05/12/23 Status: [...] Team Personnel Name: Li Delgado MD Position: [facility] Physician - Primary Care Member Role: PCP Address: [address] [place] [address] Telecom: Name: Mp Magana RN Position: [facility] RN Member Role: Primary Care Nurse Care Team Related Persons Name: MERLY MATHIS Name: KAPIL MATHIS Name: KENNEDY CONNOLLY Insurance Providers Guarantor name: LONA CONNOLLY Health Plan Information #: 1 Payer: [facility] MEDIC[employer] ADV HMO Member Number: [id number] Policy Number: NA Group Number: [id number] Health Plan Information #: 2 Payer: [facility] MEDICARE ADV HMO Member Number: [id number] Policy Number: NA Group Number: [id number]
--- OUTSIDE RECORDS SUMMARY | 2025-01-14 12:49 | XMS_ITS | Patient Health Record ---
Author Organization [facility] Address [address] [place] [address] Care Team Providers Care Materials And Processes Manager Name Role Phone Sandy ANSARI, [facility] Primary Care Provider Unavailab Parminder Preston Jr Unavailable [phone] Allergies No Known Allergies Results Component Value Reference Range Notes Pathology Reviewed date:05/23/2024 11:15:16 AM Interpretation: Performing Lab:[facility], [address] [place] [phone] Notes/Report: Name: Lona Connolly Age/Sex: 69/F : 1955 Unit#: [id number] Attend Dr: Parminder Fitch MD Re05/21/24 Status : [facility] Location: [facility] Disch: SPEC : [id number] RECD : 05/21/24-1034 STATUS: ROLAN BOND NUM: [id number] DAVI: 05/21/24-1014 [facility] DR: Parminder Fitch MD ENTERED: 05/21/24-10 41 SP TYPE: Surgical OTHR DR: Li Delgado MD ORDERED: HE Stain/3, Gross Micro L4, Special st. 2, AB/PAS Diagnosis Gastroesophageal sherry ction, biopsy: Hong's esophagus with indefinite for dysplasia (see comment). COMMENT: Although no definitive dysplasia is seen, short-term follow up with biopsy is advised. 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 The special stain for AB PAS highlights intestinal metaplasia. Material Received EG junction bx's Gross Description Received in formalin labeled ?EG junction biopsies? are 3 pieces of salazar-pink tissue measuring from 0.2-0 .3 cm, all submitted in cassette labeled A. FM This case was review ed intradepartmentally. Special stains order ed and performed: AB/PAS on A. Copies To: Li Delgado MD [address] [place] [id number] Parminder Fitch MD [address] [place] [phone] CONTINUED ON NEXT PAGE Name: Lona Alejandro Age/Sex: 69/F : 1955 Unit#: [id number] Attend Dr: Parminder Fitch MD Re05/21/24 Status : [facility] Location: [facility] Disch: SPEC : [id number] RECD : 05/21/24-5 STATUS: ROLAN BOND NUM: [id number] DAVI: 05/21/24-[address]: Parminder Fitch MD ENTERED: 05/21/24-10 41 SP TYPE: Surgical OTHR DR: Li Delgado MD ORDERED: CRISTIN Stain/3, Gross Micro L4, Special st. 2, AB/PAS Signed (si gnature on file) Ruma Cullen MD 05/23/24 1028 END OF REPORT Reason For Referral No Information Medications Medication SIG (Take, Route, Frequency, Duration) Notes Start Date End Date Status Atorvastatin Calcium 40 MG 1 tablet Oral ly Once a day Active Gabapentin 600 MG 1 capsule Orally QHS Active ProAir HFA 108 (90 Base) MCG/ACT 2 puffs as needed Inhalation every 4 hrs/prn Active Vitamin D-3 1000 UNIT 1 capsule Orally O nce a day Active Multi Vitamin/Minerals - as directed Orally QD Active CoQ10 100 MG 1 capsule with a mel l Orally Once a day Active Omeprazole 20 MG TAKE 1 CAPSULE BY [facility] EVERY DAY FOR 30 DAYS for 90 Active Dicyclomine HCl 20 MG 1 tablet Orally 2- 4 times a day 03/11/2024 Active Aspir-Low 81 MG 1 tablet Orally Once a day for 30 day(s) Active Immunizations Vaccine Route Administration Date Status Comme nts Influenza Unknown 06/13/2018 Administered Influenza Unknown 06/04/2019 Administered Influenza Unknown 06/04/2021 Administered Influenza Unknown 06/27/2023 Administered Social History Tobacco Use: Social History Observation Description Date Details (start date - stop date) Former Smoker NA - NA Tobacco Use/Smoking Question Answer Notes Patient is a former smoker How long has it been since you last smoked? 5-10 years Problems Problem Type SNOMED Code ICD Code Onset Dates Problem Status W/U Status Risk Notes Problem 199655489 Colon cancer screening (Z12.11) Active confirmed Problem 59344035 Diarrhea (R19.7) Active confirmed Problem 47904744 Change in bowel habits (R19.4) Active confirmed Problem 689814444 Irritable bowel syndrome with diarrhea (K58.0) Active confirmed Problem 080544262 Gastroesophageal reflux disease without esophagitis (K21.9) Active confirmed Problem 104141749 Esophageal dysmotility (K22.4) Active confirmed Problem Hong esophagus (013118309) Hong esophagus (K22.70) Active confirmed Problem Esophageal reflux finding (729310805) Gastroesophageal reflux (K21.9) Active confirmed Problem 24065046 Irritable bowel syndrome with both constipation and diarrhea (K58.2) Active confirmed Problem 579936753 Gastroesophageal reflux disease, unspecified whether esophagitis present (K21.9) Active confirmed Vital Signs Temperature 97.7 degrees Fahrenheit 03/11/2024 Blood pressure diastolic 00 mm Hg 03/11/2024 Height 65.5 in 03/11/2024 Blood pressure systolic 000 mm Hg 03/11/2024 Weight 177 lb 2 oz lbs 03/11/2024 BMI 29.02 kg/m2 03/11/2024 Encounters Encounter Location Date Provider Diagnosis [facility] [address] [place] [id number] 05/21/2024 Parminder Fitch Jr Hong esophagus K22.70 [facility] [address] [place] [address] 03/11/2024 Parminder Fitch Jr Change in bowel habits R19.4 and Hong esophagus K22.70 [facility] [address] [place] [phone] 03/11/2024 Parminder Fitch Jr [facility] [address] [place] [address] 06/05/2024 Parminderfarhan Fitch Jr Assessments Encounter Date Diagnosis (ICD Code) Assessment Notes Treatment Notes Treatment Clinical Notes Section Notes 05/21/2024 Hong esophagus (ICD-10 - K22.70) 03/11/2024 Change in bowel habits (ICD-10 - R19.4) Endoscopy material was printed We discussed her symptoms today. We recommended further evaluation with laboratory studies in stool specimens for her right-sided discomfort and change in bowel habits. She will begin dicyclomine as directed for her symptoms of right-sided abdominal discomfort. If her symptoms persist and stool testing is unrevealing, then I would consider further evaluation with CT scanning. We discussed this today. She is due for followup endoscopy because from her history of Hong's esophagus. We discussed risks and benefits of the procedure today. She understands these and agrees to proceed. She is advised to stop aspirin one week before the procedure. 03/11/2024 Hong esophagus (ICD-10 - K22.70) We discussed her symptoms today. We recommended further evaluation with laboratory studies in stool specimens for her right-sided discomfort and change in bowel habits. She will begin dicyclomine as directed for her symptoms of right-sided abdominal discomfort. If her symptoms persist and stool testing is unrevealing, then I would consider further evaluation with CT scanning. We discussed this today. She is due for followup endoscopy because from her history of Hong's esophagus. We discussed risks and benefits of the procedure today. She understands these and agrees to proceed. She is advised to stop aspirin one week before the procedure. Plan Of Treatment Pending Test Test Name Order Date LIVER PROFILE 03/11/2024 LIPASE 03/11/2024 CBC w DIFF 03/11/2024 STOOL WBC 03/11/2024 FECAL FAT QUAL 03/11/2024 TSH REFLEX FREE T4 03/11/2024 CALPROTECTIN, STOOL 03/11/2024 Ova and Parasite 03/11/2024 GI PANEL 03/11/2024 Future Test Test Name Order Date COLONOSCOPY 07/08/2015 COLONOSCOPY 12/13/2019 UPPER GI ENDOSCOPY 10/22/2021 COLONOSCOPY 10/22/2021 UPPER GI ENDOSCOPY 03/11/2024 Next Appt Details Provider Name:Parminder Ros wilkes Jr, 01/21/2025 07:30:00 AM, [address] [place] [address] , [place], [place], [phone], Insurance Providers Payer Name Payer Address Payer Phone Subscriber Number Group Number Insured Name Patient Relationship to Insured Coverage Start Date Coverage End Date [facility] [address] [place] [phone] [id number] LONA CONNOLLY Self - patient is the insured Medical (General) History Medical History History ICD Code colonoscopy 11/23, normal, ten-year follo wup arthritis elevated cholesterol IBS with diarrhea and constipation COPD cardiology catherization done Gastroesophageal reflux dise ase, Hong's esophagus, EGD 03/25, no dysplasia, three-year followup because of prior history of low-grade dysplasia Surgical History Surgery Date(Month/Year) left oophorectomy tonsillectomy carpal tunnel release-both hands
--- OUTSIDE RECORDS SUMMARY | 2025-01-14 12:50 | XMS_ITS ---
Author Organization [facility] Address [address] [place] [address] Care Team Providers Care Rn Endocrinology Name Role Phone Sandy ANSARI, Li Primary Care Provider Unavailab Parminder Preston Jr [phone] REASON FOR VISIT dysphagia Encounters Encounter Location Date Provider Diagnosis [facility] [place] [address] [place] [phone] 11/12/2024 Parminder Fitch Jr Plan Of Treatment Next Appt Details Provider Name:Parminder wilkes Jr, 01/21/2025 07:30:00 AM, [address] [place] [address], [phone], Progress Notes * LONA CONNOLLY MDOB:[birth year] (69 yo F)Acc No.[id number]:11/12/2024 EGD/MAC Patient:?LONA CONNOLLY Provider:?Parminder Fitch MD :1955???Age:69 Y???Sex:Female D ate:11/12/2024 Address:[address] [place] [address] Pcp:Li Delgado MD Subjective: * Chief Complaints: * ???1. Dysphagia. * Medical History:? Objective: * Vitals:? Assessment: [...]
--- OUTSIDE RECORDS SUMMARY | 2025-01-14 12:50 | XMS_ITS | Clinical Summary ---
Author Organization [employer] [facility] Address [address] [place] [address] Care Team Providers Care Fourdrinier Machine Operator Name Role Phone Bella Shelby MD Primary Care Provider [phone] Allergies Active Allergy Reactions Criticality Noted Date Comments No Known Drug Allergies 11/16/2016 Medications atorvastatin (LIPITOR) 40 MG tablet TAKE ONE TABLET BY MOUTH EVERY DAY 0 Active buPROPion (WELLBUTRIN XL) 150 MG 24 hr tablet TAKE ONE TABLET BY MOUTH EVERY MORNING 0 Active gabapentin (NEURONTIN) 300 MG capsule TAKE ONE CAPSULE BY MOUTH THREE TIMES A DAY 1 Active fluticasone propionate (Flonase Allergy Relief) 50 mcg/actuation nasal spray Instill into each nostril 2 Active meclizine (ANTIVERT) 25 mg tablet TAKE 0.5- 1 TABLET BY MOUTH 3 TIMES A DAY NEEDED FOR DIZZINESS 3 Active omeprazole (PriLOSEC) 20 MG capsule TAKE 1 CAPSULE BY MOUTH EVERY DAY FOR 30 DAYS 3 Active albuterol (VENTOLIN HFA) 90 mcg/actuation inhaler TAKE 2 PUFFS BY MOUTH EVERY 6 HOURS 3 Active atorvastatin (LIPITOR) 40 MG tablet Take 1 tablet (40 mg total) by mouth 2 Active gabapentin (NEURONTIN) 300 MG capsule Take 2 capsules (600 mg total) by mouth 5 Active Social History Tobacco Use Types Packs/Day Years Used Date Smoking Tobacco: Former Smokeless Tobacco: Never Tobacco Cessation:Counseling Given: No Comments No Sex and Gender Information Value Date Recorded Sex Assigned at Not on file Legal Sex Female 8:32 AM EDT Gender Identity Not on file Sexual Orientation Not on file Last Filed Vital Signs Vital Sign Reading Time Taken Comments Blood Pressure 126/82 12/17/2022 2:43 PM EDT Pulse 73 12/17/2022 2:43 PM EDT Temperature 36.2 ??C (97.2 ??F) 12/17/2022 2:43 PM ED T Respiratory Rate 18 12/17/2022 2:43 PM EDT Oxygen Saturation 97% 12/17/2022 2:43 PM EDT Inhaled Oxygen Concentration - - Weight 83 kg (183 lb) 11/23/2020 8:44 AM EDT Height 166.4 cm (5' 5.5 ) 11/23/2020 8:44 AM EDT Body Mass Index 29.99 11/23/2020 8:44 AM EDT Plan of Treatment Health Maintenance Due Date Last Done Comments Colorectal Cancer: COLONOSCO PY Screening every 10 yrs (or Modifier) 1955 Depression: Screening Annual ly using PHQ-2/9 in Adults 18 yrs or above (or HM Modifier)([facility]) 1972 Hepatitis C Virus Infection in Adolescents and Adults: Screening (or Modifier) ([facility]) 1972 JATINDER Screening: Once using ST OP-BANG Questionnaire for Adults with Conditions or high BMI([facility]) 1972 SDOH Screening Reminder: Suzi reed for all adults ([facility]) 1972 Tobacco Smoking Cessation: i n Adults excluding Women: Behavioral and Pharmacotherapy Interventions ([facility]) 1972 DTaP/Tdap/Td Vaccines ([facility]) (1 - Tdap) 1973 Colorectal Cancer Screening 45 -75 Yrs (or HM Modifier) 1999 Colorectal Cancer: FLEXIBLE SIGMOIDOSCOPY Screening every 5 yrs 1999 Colorectal Cancer: Fecal Immunochemical Test (FIT) Annually [facility] 1999 Colorectal Cancer: High-sens itivity gFOBT Screening Annually [facility] 1999 Colorectal Cancer: Stool Col oguard Screening every 3 yrs 1999 Colorectal Cancer:CT Colonog tiffanie Screening every 5 yrs 1999 Lipid Screening: Every 5 yrs for Women aged 45+ (or HM Modifier) ([facility]) 2000 Breast Cancer: Screening Suzi derek age 50-74 yrs (or HM Modifier)([facility]) 2004 Lung Cancer: Screening Annua lly in adults aged 50 to 80 years (or HM Modifiers)([facility]) 2004 Zoster/Shingles Vaccine Seri es Screening: Adults aged 18+ yrs (or HM Modifiers)([facility]) (1 of 2) 2004 Osteoporosis Screening to Pr event Fractures: Women aged 65 years+ ([facility]) 2019 Pneumococcal Vaccination Scr eening: Patients 50+ yrs of age ([facility]) (2 of 2 - PCV) 09/11/2021 09/11/2020 COVID-19 Vaccine Screening: Initial Series and Booster Status ([facility]) ( - 2023- season) 2024 06/26/2021, 12/12/2020, 11/07/2020 Flu Vaccination: Ages 65+: Y early High Dose Recommended (or Modifier)([facility]) 04/04/2025 RSV Vaccines (1 - 1-dose 75+ series) 2029 Medical Devices Not on file Insurance [facility] MEDICARE Care Teams Fourdrinier Machine Operator Relationship Specialty Start Date End Date Bella Shelby MD [facility] [place] [phone] PCP - General Internal Medicine 11/23/20
--- NOTE | 2025-01-20 12:06 | HO.ANESPROP2 ---
Documented by User: Katherine Hawkins NP 01/20/25 12:07 HPI - Anesthesia Eval Consult details Narrative: 69yo F for Upper Endoscopy lao biopsy PMFSH Active Problems Active Problems: All Active Problems Neuropathy (Acute) GERD (gastroesophageal reflux disease) (Acute) Osteoporosis (Acute) Bronchitis (Acute) Neck pain (Acute) Annual physical exam (Acute) Dyspnea (Acute) H/O colonoscopy (Acute) COPD (chronic obstructive pulmonary disease) (Acute) Pulmonary nodules (Acute) Past Medical History Medical History Osteoporosis GERD (gastroesophageal reflux disease) Dyspnea Pulmonary nodules History of palpitations Hx of irritable bowel syndrome Arthritis COPD (chronic obstructive pulmonary disease) Elevated cholesterol Family History Family History Father No problems noted. Mother No problems noted. Maternal Aunt Colon cancer Maternal Uncle Colon cancer Sister No problems noted. Son No problems noted. Family history of problems with anesthesia: No Surgical History Surgical History Hx of esophagogastroduodenoscopy Hx of tonsillectomy History of carpal tunnel release of both wrists Hx of oophorectomy H/O colonoscopy History of Problems with Anesthesia: No Social History Social History Housing: House Are you a primary intensive care anaesthetist to a significant other at home: No Do you presently have visiting nurse or other home services: No Patient Tobacco Use Status: Former Tobacco user Tobacco use type: Cigarette Years Smoked: 10 years e-Cigarette/Vaping Use: Never Used Second Hand Smoke Exposure: No Use of substances other than those prescribed or required for medical reasons: No Have you been hit, kicked, punched, or otherwise hurt by someone within the past year? If so, by whom?: No Advance Directives: No Advance Directives Information Provided: Yes Current occupational status: retired Cognitive needs: No Hearing needs: No Vision needs: Yes Meds Allergies Allergy/AdvReac Type Severity Reaction Status Date / Time No Known Allergies Allergy Mild N/A Verified 01/21/25 06:54 Home Medications ?Medication ?Instructions ?Recorded ?Confirmed ?Last Taken ?Type cholecalciferol (vitamin D3) 25 25 mcg PO DAILY 06/29/20 01/21/25 Unknown History mcg (1,000 unit) tablet (Vitamin D3) coenzyme Q10 100 mg capsule (Co 100 mg PO DAILY 06/29/20 01/21/25 Unknown History Q-10) multivitamin 1 tab PO DAILY 06/29/20 01/21/25 Unknown History omeprazole 20 mg capsule,delayed 20 mg PO DAILY 10/25/21 01/21/25 01/21/25 History release fluticasone propionate 50 2 spray intranasal DAILY PRN 06/01/22 01/21/25 Unknown History mcg/actuation nasal Congestion spray,suspension albuterol sulfate 90 mcg/actuation 2 puff inhalation Q6H 11/08/24 01/21/25 Unknown History aerosol inhaler aspirin 81 mg tablet,delayed 81 mg PO DAILY 11/08/24 01/21/25 01/20/25 History release gabapentin 300 mg capsule 600 mg PO BEDTIME 11/08/24 01/21/25 Unknown History Exam Height,Weight and Vital Signs: Height 5 ft 5.5 in Weight 80.343 kg Assessment and Plan Assessment Anesthesia Assessment: Chart Reviewed Final Anesthetic Review Family History of Problems with Anesthesia: No History of Problems with Anesthesia: No Documented by User: Nadiya Wiley MD 01/21/25 07:50 [facility] Past Medical History Medical History Osteoporosis GERD (gastroesophageal reflux disease) Dyspnea Pulmonary nodules History of palpitations Hx of irritable bowel syndrome Arthritis COPD (chronic obstructive pulmonary disease) Elevated cholesterol Family History Family History Father No problems noted. Mother No problems noted. Maternal Aunt Colon cancer Maternal Uncle Colon cancer Sister No problems noted. Son No problems noted. Surgical History Surgical History Hx of esophagogastroduodenoscopy Hx of tonsillectomy History of carpal tunnel release of both wrists Hx of oophorectomy H/O colonoscopy Social History Social History Housing: House Are you a primary intensive care anaesthetist to a significant other at home: No Do you presently have visiting nurse or other home services: No Patient Tobacco Use Status: Former Tobacco user Tobacco use type: Cigarette Years Smoked: 10 years e-Cigarette/Vaping Use: Never Used Second Hand Smoke Exposure: No Use of substances other than those prescribed or required for medical reasons: No Have you been hit, kicked, punched, or otherwise hurt by someone within the past year? If so, by whom?: No Advance Directives: No Advance Directives Information Provided: Yes Current occupational status: retired Cognitive needs: No Hearing needs: No Vision needs: Yes Meds Allergies Allergy/AdvReac Type Severity Reaction Status Date / Time No Known Allergies Allergy Mild N/A Verified 01/21/25 06:54 Home Medications ?Medication ?Instructions ?Recorded ?Confirmed ?Last Taken ?Type cholecalciferol (vitamin D3) 25 25 mcg PO DAILY 06/29/20 01/21/25 Unknown History mcg (1,000 unit) tablet (Vitamin D3) coenzyme Q10 100 mg capsule (Co 100 mg PO DAILY 06/29/20 01/21/25 Unknown History Q-10) multivitamin 1 tab PO DAILY 06/29/20 01/21/25 Unknown History omeprazole 20 mg capsule,delayed 20 mg PO DAILY 10/25/21 01/21/25 01/21/25 History release fluticasone propionate 50 2 spray intranasal DAILY PRN 06/01/22 01/21/25 Unknown History mcg/actuation nasal Congestion spray,suspension albuterol sulfate 90 mcg/actuation 2 puff inhalation Q6H 11/08/24 01/21/25 Unknown History aerosol inhaler aspirin 81 mg tablet,delayed 81 mg PO DAILY 11/08/24 01/21/25 01/20/25 History release gabapentin 300 mg capsule 600 mg PO BEDTIME 11/08/24 01/21/25 Unknown History Exam Airway Mallampati Class: II TM Dist: >3cm Neck ROM: Full Heart: rrr Lungs: Cta Assessment and Plan Assessment Anesthesia Assessment: Anesthesia Plan Discussed Final Anesthetic Review NPO: Yes ASA Class: II Final Preanesthetic Review: No Changes in Pt Med Stat, Meds/Allgs Chart Reviewed, Consent Obtained/Reviewed and Anes Risks/Benef Reviewed Patient Risk: Intermediate Procedure Risk: Low Anesthetic Plan Anesthetic Plan: MAC: Disposition: Standard PACU
[2025-01-21 07:03] VITALS: BP 129/61; PULSE 69; RESP 14; TEMP 36.7; O2SAT 97
--- NOTE | 2025-01-21 07:26 | MHC.SHP ---
Pre-Procedural Eval Section A - 24 Hr Update-Section A only Date of Service: 01/21/25 Section B - Complete if H&P > 30 days Chief Complaint: Dysphagia, unspecified Details of Present Illness: see H&P and addendum Relevant Family History (Specify if Yes): No Relevant Social History: None Present Medications: see Short Stay Collaborative assessment Medical History: No relevant PMH History of Previous Operations: No relevant previous surgery Allergies: Allergies Allergy/AdvReac Type Severity Reaction Status Date / Time No Known Allergies Allergy Mild N/A Verified 01/21/25 06:54 Review of Systems Sugical H&P ROS: Negative: Constitution, Cardiovascular, Respiratory, Neurological, Psychiatric, Hem-Onc, Allergic/Immunologic, Gastrointestinal, Genitourinary, Musculoskeletal, Integumentary, Endocrine and Eyes/Ears/Nose/Throat Exam Surgical H&P Exam: Normal: HEENT, Normal: Heart, Normal: Lungs, Normal: Extremities, Normal: Abdomen, Normal: Skin and Normal: Neurological Plan Diagnosis/Plan: Unchanged I have reviewed the history and physical and performed a pertinent physical examination on my patient. No changes have occurred unless specified. Time Spent With Patient Time: Total time managing care of this patient today ____ minutes.
[2025-01-21 08:35] VITALS: BP 92/40; PULSE 69; RESP 16; TEMP 36.3; O2SAT 94
[2025-01-21 08:50] VITALS: BP 114/52; PULSE 62; RESP 18; TEMP 36.6; O2SAT 97
--- NOTE | 2025-01-21 09:18 | OP_ITS ---
DATE OF SERVICE: 01/21/2025 SURGEON: Parminder Fitch MD INDICATIONS: Hong esophagus, indefinite for dysplasia PREOPERATIVE DIAGNOSIS: POSTOPERATIVE DIAGNOSIS: PROCEDURE PERFORMED: Upper endoscopy with biopsy and brushings. ESTIMATED BLOOD LOSS: COMPLICATIONS: ANESTHESIA: Monitored anesthesia care. ASSISTANTS: SPECIMENS: DESCRIPTION OF PROCEDURE: A history and physical was performed. The risks and benefits of the procedure were explained to the patient and informed consent was obtained. The patient was placed in the left lateral decubitus position. The Olympus video gastroscope was introduced into the esophagus, stomach, and duodenum. Examination was performed. The scope was removed. She tolerated the procedure well and was returned to the recovery area in stable condition. FINDINGS: Esophagus: There was a 1 cm area of Hong esophagus with no raised lesions or ulcerated areas. There was a small sliding hiatal hernia. Biopsies and brushings were obtained from the EG junction and at 39 cm. Stomach: The stomach showed no evidence of masses, ulcers, or polyps. Duodenum: The bulb and second portion were normal. IMPRESSION: Hong esophagus, indefinite for dysplasia. RECOMMENDATION: Follow up the biopsy results. MD GIOVANNI Adams/BLAIREL / [id number]
== END 2025-01-21 09:15 | disposition home or self-care (01) ==
PROVIDERS: PCP Family Medicine; Visit Provider Internal Medicine Gastroenterology
PROC: 0DJ08ZZ Inspection of Upper Intestinal Tract, Via Natural or Artificial Opening Endoscopic (ICD-10-PCS; CPT 43235; principal; 2025-01-21 07:30)
DX: K22.70 Barrett's esophagus without dysplasia (principal); K44.9 Diaphragmatic hernia without obstruction or gangrene; R13.10 Dysphagia, unspecified; K21.9 Gastro-esophageal reflux disease without esophagitis; E78.5 Hyperlipidemia, unspecified; J44.9 Chronic obstructive pulmonary disease, unspecified; Z87.891 Personal history of nicotine dependence; Z79.82 Long term (current) use of aspirin; Z79.899 Other long term (current) drug therapy; Z79.02 Long term (current) use of antithrombotics/antiplatelets
CPT/HCPCS: 43239; 88305; 88341; 88342; J2003; J2704